=== PATIENT | female | born 1975 | race Asian ===

== ENCOUNTER 2022-05-01 14:56 | Emergency (ER) | payer OTHER ==
[~2022-05-01] VITALS: Ht 160 cm; Wt 54.4 kg
--- NOTE | 2022-05-01 14:58 | NUR ---
pt raymundo [facility] [id number]
[2022-05-01 15:01] VITALS: BP 175/88
--- NOTE | 2022-05-01 15:01 | NUR ---
46YO FEMALE PT BIBA FROM [facility]RGENT [facility]ARE [facility] C/O GENERAL WEAKNESS x<1HR. PER [facility], FAMILY STATES PT TOOK "20MG OF EDIBLES" W/ THIS BEING PT 1ST TIME. FAMILY ATTMPTED TO TAKE PT TO URGENT CARE WHICH WAS CLOSED AND THEN CALLING 911. UPON ARRIVAL PT LETHARGIC W/ MUMBLED DELAYED SPEECH. AMBULATORY W/ ASSIST. AROUSABLE TO TOUCH AND VOICE. PT AAOX4, RESPIRATIONS EVEN AND UNLABORED. ON PUFFER TENDER. HX:HTN NKA
--- NOTE | 2022-05-01 15:24 | NUR ---
MD FRY AT BEDSIDE FOR EVALUATION
[2022-05-01 15:50] LABS: BARBITURATE, URINE NEGATIVE ng/ml (NEG <=200); BENZODIAZEPINE, URINE POSITIVE ng/mL (NEG <=200); CANNABINOID, URINE POSITIVE ng/mL (NEG <=50); COCAINE, URINE NEGATIVE ng/mL (NEG <=300); OPIATE, URINE NEGATIVE ng/mL (NEG <=2000); PHENCYCLIDINE SCREEN,URINE NEGATIVE ng/mL (NEG <=25)
[2022-05-01 15:52] VITALS: BP 136/76
--- NOTE | 2022-05-01 15:52 | NUR ---
Patient discharged with v/s stable. Written and verbal after care instructions FOR MARIJUANA USE given and explained. Patient verbalized understanding. Ambulatory with steady gait. All questions addressed prior to discharge. Advised to follow up with PMD.
== END 2022-05-01 15:52 | disposition home or self-care (01) ==
LOC: MED 14:56
DX: F12.90 Cannabis use, unspecified, uncomplicated (principal); F41.9 Anxiety disorder, unspecified; I10 Essential (primary) hypertension; Z79.899 Other long term (current) drug therapy; Z90.49 Acquired absence of other specified parts of digestive tract; Z98.890 Other specified postprocedural states
CPT/HCPCS: 80305; 81002; 81025; 99283